=== PATIENT | female | born 1945 | race Caucasian/White ===

== ENCOUNTER → 2018-09-02 | Outpatient (CLI) | payer MEDICARE ==
[~2018-09-02] MED LIST: ASPIRIN 81M81 MG/TA2 PO; COD LIVER OIL1 CAP PO; MULTI VITAMINS1 TAB PO
== END ==
LOC: COL.RAD 11:45
DX: E04.2 Nontoxic multinodular goiter (principal)

== ENCOUNTER → 2018-09-24 | Outpatient (CLI) | payer MEDICARE | LOC: COL.VAS 14:46 | DX: R22.31 Localized swelling, mass and lump, right upper limb (principal) ==

== ENCOUNTER 2019-02-14 10:45 | Outpatient (RCR) | payer MEDICARE | END 2019-04-19 | LOC: MKS.ESL.PT | DX: I97.2 Postmastectomy lymphedema syndrome (principal); Z90.11 Acquired absence of right breast and nipple ==

== ENCOUNTER → 2020-07-09 | Outpatient (RCR) | payer MEDICARE | END | disposition home or self-care (01) | LOC: MKS.ESL.PT | DX: I89.0 Lymphedema, not elsewhere classified (principal); Z85.3 Personal history of malignant neoplasm of breast; Z90.10 Acquired absence of unspecified breast and nipple ==

== ENCOUNTER 2020-08-24 11:00 | Outpatient (RCR) | payer MEDICARE | END 2020-10-09 | disposition home or self-care (01) | LOC: MKS.ESL.PT | DX: I89.0 Lymphedema, not elsewhere classified (principal); Z85.3 Personal history of malignant neoplasm of breast; Z90.11 Acquired absence of right breast and nipple ==

== ENCOUNTER → 2021-05-09 | Outpatient (CLI) | payer MEDICARE | LOC: COL.LAB 14:19 | DX: Z01.89 Encounter for other specified special examinations (principal) ==